=== PATIENT | male | born 1955 | race African-American/Black ===

== ENCOUNTER 2020-05-07 18:13 | Inpatient (IN) | payer BC, OTHER ==
[~2020-05-07] VITALS: Ht 182.9 cm; Wt 77.1 kg
[~2020-05-07 18:13] MED LIST: HYDR-1348 PO; SULF-165 PO
[2020-05-07] MEDS ORDERED: ALBUTEROL (0.083%) 2.5MG/3ML NEB HHN STA (18:54)
[2020-05-07] MEDS ORDERED: PREDNISONE 20MG TABLET PO STA (18:54)
[2020-05-07] MEDS ORDERED: IPRATROPIUM BROMIDE (0.02%) 0.5MG/2.5ML NEB HHN STA (18:54)
[2020-05-07] MEDS ORDERED: SODIUM CHLORIDE 0.9% 1,000 ML IV ONE (19:00)
[2020-05-07] MEDS ORDERED: CEFTRIAXONE 1 G PREMIX 50 ML IV ONE (19:00)
[2020-05-07] MEDS ORDERED: AZITHROMYCIN 500 MG in DEXT 5% WATER 250 ML IV SCH (19:00)
[2020-05-07 19:42] LABS: BASOPHILS % 0.3 % (0.0-2.0); CHLORIDE 99 mEq/L (98-107); HEMATOCRIT. 38.4 % (42.0-52.0); HEMOGLOBIN. 13.1 g/dL (14.0-18.0); LYMPHOCYTES % 12.1 % (20.0-50.0); MEAN CORPUSCULAR VOLUME 90.8 fL (80.0-94.0); MEAN PLATELET VOLUME 11.9 fl (7.4-10.4); MONOCYTES % 7.1 % (2.0-8.0); NEUTROPHILS % 80.5 % (40.0-76.0); PLATELET 107 x1000/uL (130-400); RED BLOOD CELL COUNT 4.23 mill/uL (4.7-6.1); RED CELL DISTRIBUTION WIDTH 13.9 % (11.6-14.6)
[2020-05-07 19:43] LABS: INR 1.1; PROTHROMBIN TIME 11.5 sec (9.6-11.0)
[2020-05-08] MEDS ORDERED: KCL 10MEQ/50ML PREMIX 50 ML IV ONE
[2020-05-08 01:05] VITALS: BP 127/80
[2020-05-08] MEDS ORDERED: AMLO5TAB88 PO (02:12)
[2020-05-08] MEDS ORDERED: ALLO100T PO (02:12)
[2020-05-08] MEDS ORDERED: FLUT1BLS9 INH (02:12)
[2020-05-08] MEDS ORDERED: LISI-604 PO (02:12)
[2020-05-08] MEDS ORDERED: ATOR40TA70 PO (02:12)
[2020-05-08] MEDS ORDERED: HYDROCODONE/ACETAMINOPHEN 5/325MG TABLET PO PRN (02:15)
[2020-05-08] MEDS ORDERED: ACETAMINOPHEN 325MG TABLET PO PRN (02:15)
[2020-05-08] MEDS ORDERED: ALBUTEROL 6.7GM HFA INHALER ORI PRN (03:00)
[2020-05-08 04:00] VITALS: BP 127/82
[2020-05-08] MEDS: DEXAMETHASONE 10 MG/ML VIAL IV SCH ×3 (05:23→17:29)
[2020-05-08 08:00] VITALS: BP 134/91
[2020-05-08] MEDS: PANTOPRAZOLE SODIUM 40 MG/VIAL IV SCH (08:38)
[2020-05-08 12:00] VITALS: BP 133/86
[2020-05-08 16:00] VITALS: BP 129/86
[2020-05-08] MEDS: AZITHROMYCIN 500 MG in DEXT 5% WATER 250 ML IV SCH (17:28)
[2020-05-08] MEDS: CEFTRIAXONE 1,000 MG in DEXTROSE 5% WATER 50 ML IV SCH (17:29)
[2020-05-08 20:00] VITALS: BP 131/83
[2020-05-09] VITALS: BP 125/82
[2020-05-09] MEDS: DEXAMETHASONE 10 MG/ML VIAL IV SCH ×3 (01:23→11:13)
[2020-05-09 04:00] VITALS: BP 127/82
[2020-05-09 08:00] VITALS: BP 123/89
[2020-05-09] MEDS: PANTOPRAZOLE SODIUM 40 MG/VIAL IV SCH (08:41)
[2020-05-09 12:00] VITALS: BP 121/73
[2020-05-09 15:10] LABS: BG CARBOXYHEMOGLOBIN 0.3 % (0.5-1.5); BG DEOXYHEMOGLOBIN 7.8 % (0.0-5.0); BG HCO3 ACT 21.3 mmol/L (22.0-26.0); BG METHEMOGLOBIN 0.2 % (0.0-1.5); BG OXYGEN SATURATION 92.2 % (92.0-98.5); BG OXYHEMOGLOBIN 91.7 % (94.0-97.0); BG PCO2 28.6 mmHg (35.0-45.0); BG PH 7.489 (7.350-7.450); BG PO2 63.7 mmHg (75.0-100.0); BG SAMPLE SITE RIGHT RADIAL; BG TOTAL HEMOGLOBIN 12.5 g/dL (12.0-18.0); BG VENT MODE ROOM AIR
[2020-05-09 16:00] VITALS: BP 113/77
[2020-05-09] MEDS: CEFTRIAXONE 1,000 MG in DEXTROSE 5% WATER 50 ML IV SCH (16:34)
[2020-05-09] MEDS ORDERED: ENOXAPARIN 30MG/0.3ML SYR SUBCUT SCH (17:00)
[2020-05-09] MEDS: AZITHROMYCIN 500 MG in DEXT 5% WATER 250 ML IV SCH (17:14)
[2020-05-09 20:00] VITALS: BP 118/81
[2020-05-10] VITALS: BP 120/82
[2020-05-10 04:00] VITALS: BP 122/73
[2020-05-10 08:00] VITALS: BP 128/78
[2020-05-10] MEDS: PANTOPRAZOLE SODIUM 40 MG/VIAL IV SCH (08:25)
[2020-05-10] MEDS ORDERED: DEXAMETHASONE 10 MG/ML VIAL IV SCH (09:00)
[2020-05-10 09:09] LABS: CHLORIDE 106 mEq/L (98-107)
[2020-05-10 09:18] LABS: BASOPHILS % 0.1 % (0.0-2.0); HEMATOCRIT. 32.1 % (42.0-52.0); HEMOGLOBIN. 10.8 g/dL (14.0-18.0); LYMPHOCYTES % 8.2 % (20.0-50.0); MEAN CORPUSCULAR HEMOGLOBIN 30.7 pg (28.0-32.0); MEAN CORPUSCULAR VOLUME 91.1 fL (80.0-94.0); MEAN PLATELET VOLUME 12.4 fl (7.4-10.4); MONOCYTES % 9.9 % (2.0-8.0); NEUTROPHILS % 81.8 % (40.0-76.0); PLATELET 170 x1000/uL (130-400); RED BLOOD CELL COUNT 3.52 mill/uL (4.7-6.1)
[2020-05-10 11:12] LABS: BG BASE EXCESS -0.7 mmol/L (-2.0-2.0); BG CARBOXYHEMOGLOBIN 0.3 % (0.5-1.5); BG DEOXYHEMOGLOBIN 5.8 % (0.0-5.0); BG FRACTION INSPIRED OXYGEN 21; BG HCO3 ACT 22.2 mmol/L (22.0-26.0); BG METHEMOGLOBIN 0.1 % (0.0-1.5); BG OXYGEN SATURATION 94.2 % (92.0-98.5); BG OXYHEMOGLOBIN 93.8 % (94.0-97.0); BG PCO2 31.4 mmHg (35.0-45.0); BG PH 7.468 (7.350-7.450); BG SAMPLE SITE RIGHT RADIAL; BG TOTAL HEMOGLOBIN 12.1 g/dL (12.0-18.0); BG VENT MODE ROOM AIR
[2020-05-10 12:00] VITALS: BP 114/73
[2020-05-10 12:11] LABS: T4 FREE 1.26 ng/dL (0.76-1.46)
[2020-05-10 13:58] LABS: CLARITY URINE CLEAR (CLEAR); COLOR URINE YELLOW (YELLOW); KETONES URINE NEGATIVE (NEGATIVE); LEUKOCYTE ESTERASE URINE NEGATIVE (NEGATIVE); NITRITE URINE NEGATIVE (NEGATIVE); OCCULT BLOOD URINE NEGATIVE (NEGATIVE); PROTEIN URINE TRACE (NEGATIVE); SPECIFIC GRAVITY URINE 1.015 (1.005-1.030); UROBILINOGEN URINE 0.2 E.U./dL (0.2-1.0)
[2020-05-10] MEDS ORDERED: DEXA4TAB MT (15:14)
[2020-05-10] MEDS ORDERED: ALBU90AE INH (15:14)
[2020-05-10] MEDS ORDERED: APIX5TAB MT (15:14)
[2020-05-10] MEDS ORDERED: FAMO-135 PO (15:14)
[2020-05-10] MEDS ORDERED: AZIT250T12 PO (15:14)
[2020-05-10 15:27] VITALS: BP 121/71
[2020-05-10 16:00] VITALS: BP 109/71
[2020-05-10] MEDS: CEFTRIAXONE 1,000 MG in DEXTROSE 5% WATER 50 ML IV SCH (17:00)
[2020-05-10] MEDS ORDERED: ENOXAPARIN 40MG/0.4ML SYR SUBCUT SCH (17:00)
[2020-05-11] MEDS ORDERED: FAMOTIDINE 20MG/2ML VIAL IV SCH (09:00)
== END 2020-05-10 17:40 | disposition home or self-care (01) | DRG 871 ==
LOC: ER 18:13 → CANRESERV 22:43 → ENRESERV 22:43 → 7EST 23:57 → EDBEDREQ 23:58 → EDBEDREQTM 23:58
PROVIDERS: ADMIT Internal Medicine; ATTEND Internal Medicine
DX: A41.89 Other specified sepsis (principal); U07.1 COVID-19; J96.90 Respiratory failure, unspecified, unspecified whether with hypoxia or hypercapnia; N17.0 Acute kidney failure with tubular necrosis; E87.1 Hypo-osmolality and hyponatremia; J45.901 Unspecified asthma with (acute) exacerbation; I10 Essential (primary) hypertension; E87.6 Hypokalemia; E78.5 Hyperlipidemia, unspecified; E78.00 Pure hypercholesterolemia, unspecified; D64.9 Anemia, unspecified; D72.810 Lymphocytopenia; Z79.01 Long term (current) use of anticoagulants; Z79.899 Other long term (current) drug therapy; Z79.2 Long term (current) use of antibiotics; R53.1 Weakness
CPT/HCPCS: 36415; 36600; 71045; 80048; 80053; 80061; 80076; 81003; 82375; 82805; 83036; 83605; 83880; 84439; 84443; 84484; 85025; 85379; 87426; 87635; 94640; 99285; C9113; J0456; J0696; J1100; J1650; J3480; J7030; J7040; J7060; J7512

== ENCOUNTER 2020-11-08 09:05 | Emergency (ER) | payer MEDICARE, BC, OTHER ==
[~2020-11-08] VITALS: Ht 182.9 cm; Wt 89.0 kg
[~2020-11-08 09:05] MED LIST changes: +ALBU90AE INH; +ALLO100T PO; +AMLO5TAB88 PO; +APIX5TAB MT; +ATOR40TA70 PO; +DEXA4TAB MT; +FAMO-135 PO; +FLUT1BLS9 INH; +LISI20TA31 PO; -SULF-165 PO
[2020-11-08] MEDS ORDERED: KETOROLAC 60MG/2ML VIAL IM ONE (09:45)
[2020-11-08] MEDS ORDERED: INDO-13 MT (10:57)
[2020-11-08] MEDS ORDERED: COLC0.6C3 MT (11:00)
[2020-11-08 11:12] VITALS: BP 125/89
== END 2020-11-08 11:19 | disposition home or self-care (01) ==
LOC: ER 09:05
DX: M10.09 Idiopathic gout, multiple sites (principal)
CPT/HCPCS: 96372; 99283; J1885

== ENCOUNTER 2022-01-31 09:43 | Emergency (ER) | payer OTHER ==
[~2022-01-31] VITALS: Ht 182.9 cm; Wt 88.0 kg
[~2022-01-31 09:43] MED LIST changes: +COLC0.6C3 MT; +INDO-13 MT
[2022-01-31 11:06] LABS: BASOPHILS % 0.4 % (0.0-2.0); EOSINOPHILS % 0.6 % (0.0-5.0); HEMATOCRIT. 31.2 % (42.0-52.0); HEMOGLOBIN. 10.6 g/dL (14.0-18.0); LYMPHOCYTES % 27.2 % (20.0-50.0); MEAN CORPUSCULAR HEMOGLOBIN 30.6 pg (28.0-32.0); MEAN CORPUSCULAR VOLUME 90.2 fL (80.0-94.0); MEAN PLATELET VOLUME 11.3 fl (7.4-10.4); MONOCYTES % 10.9 % (2.0-8.0); NEUTROPHILS % 60.9 % (40.0-76.0); PLATELET 117 x1000/uL (130-400); RED BLOOD CELL COUNT 3.46 mill/uL (4.7-6.1); RED CELL DISTRIBUTION WIDTH 13.7 % (11.6-14.6)
[2022-01-31 11:15] LABS: CHLORIDE 106 mEq/L (98-107)
[2022-01-31] MEDS ORDERED: MORPHINE SULFATE 2 MG/ML CPJ (NOT FOR IM USE) IV ONE (11:45)
[2022-01-31] MEDS ORDERED: HYDR-4001 MT (12:04)
[2022-01-31] MEDS ORDERED: IBUP-2029 MT (12:04)
[2022-01-31 14:15] VITALS: BP 147/88
== END 2022-01-31 14:20 | disposition home or self-care (01) ==
LOC: ER 10:03
DX: S22.31XA Fracture of one rib, right side, initial encounter for closed fracture (principal); F12.10 Cannabis abuse, uncomplicated; E78.00 Pure hypercholesterolemia, unspecified; I10 Essential (primary) hypertension; Z79.899 Other long term (current) drug therapy; Z98.890 Other specified postprocedural states; X58.XXXA Exposure to other specified factors, initial encounter; Y93.89 Activity, other specified; Y92.89 Other specified places as the place of occurrence of the external cause; Y99.8 Other external cause status
CPT/HCPCS: 36415; 71101; 80053; 84484; 85025; 93005; 96374; 99285; J2270

== ENCOUNTER 2022-03-27 16:27 | Inpatient (IN) | payer OTHER ==
[~2022-03-27] VITALS: Ht 182.9 cm; Wt 76.7 kg
[~2022-03-27 16:27] MED LIST changes: +HYDR-4001 MT; +IBUP-2029 MT
[2022-03-27] MEDS ORDERED: PIPERACILLIN/TAZ 3.375G PREMIX 50 ML IV ONE (17:30)
[2022-03-27] MEDS ORDERED: VANCOMYCIN 1G PREMIX 200 ML IV ONE (17:30)
[2022-03-27 18:45] LABS: BASOPHILS % 0.3 % (0.0-2.0); HEMATOCRIT. 30.7 % (42.0-52.0); HEMOGLOBIN. 10.5 g/dL (14.0-18.0); LYMPHOCYTES % 12.3 % (20.0-50.0); MEAN CORPUSCULAR VOLUME 90.9 fL (80.0-94.0); MEAN PLATELET VOLUME 11.5 fl (7.4-10.4); MONOCYTES % 10.4 % (2.0-8.0); PLATELET 104 x1000/uL (130-400); RED BLOOD CELL COUNT 3.38 mill/uL (4.7-6.1); RED CELL DISTRIBUTION WIDTH 13.5 % (11.6-14.6)
[2022-03-27 18:47] LABS: CHLORIDE 107 mEq/L (98-107)
[2022-03-27 18:57] LABS: INR 1.2; PROTHROMBIN TIME 12.9 sec (9.6-11.0)
[2022-03-27] MEDS ORDERED: MORPHINE SULFATE 4 MG/ML CPJ (NOT FOR IM USE) IV ONE (19:15)
[2022-03-28] MEDS ORDERED: POTASSIUM CHLORIDE 20MEQ TABLET SR PO NR (04:15)
[2022-03-28] MEDS ORDERED: CALCIUM GLUCONATE 1GM PREMIX 50 ML IV NR (04:30)
[2022-03-28] MEDS ORDERED: CLONIDINE 0.1MG TABLET PO PRN (05:30)
[2022-03-28] MEDS ORDERED: DOCUSATE SODIUM 100MG CAPSULE PO PRN (05:30)
[2022-03-28] MEDS ORDERED: GUAIFENESIN 200MG/10ML SUGAR FREE UDC PO PRN (05:30)
[2022-03-28] MEDS ORDERED: MAGNESIUM/ALUMINUM HYDROXIDE/SIMETHICONE 30ML UDC PO PRN (05:30)
[2022-03-28] MEDS ORDERED: ONDANSETRON HCL 4MG/2ML INJ IV PRN (05:30)
[2022-03-28] MEDS ORDERED: ACETAMINOPHEN 325MG TABLET PO PRN ×2 (05:30)
[2022-03-28] MEDS ORDERED: IPRATROPIUM/ALBUTEROL 0.5-3(2.5)MG/3ML NEB HHN PRN (05:30)
[2022-03-28] MEDS ORDERED: [UNRECOGNIZED DRUG - CODE] IV (06:02)
[2022-03-28] MEDS ORDERED: AMLO5TAB88 PO (06:02)
[2022-03-28] MEDS ORDERED: LISI-186 PO (06:02)
[2022-03-28] MEDS ORDERED: HYDR-4001 MT (06:02)
[2022-03-28] MEDS ORDERED: OMEP20TA23 PO (06:02)
[2022-03-28 06:42] VITALS: BP 148/82
[2022-03-28 08:00] VITALS: BP 151/90
[2022-03-28] MEDS ORDERED: *PATIENT'S OWN MEDICATION STORAGE XX SCH (08:45)
[2022-03-28] MEDS ORDERED: PREDNISONE 20MG TABLET PO SCH (09:00)
[2022-03-28] MEDS: HYDROCODONE/ACETAMINOPHEN 5/325MG TABLET PO PRN ×2 (10:53→21:41)
[2022-03-28] MEDS: LISINOPRIL 20MG TABLET PO SCH (10:53)
[2022-03-28] MEDS: AMLODIPINE 5MG TABLET PO SCH (10:53)
[2022-03-28] MEDS: FAMOTIDINE 20MG TABLET PO SCH (10:53)
[2022-03-28] MEDS: ENOXAPARIN 40MG/0.4ML SYR SUBCUT SCH (10:55)
[2022-03-28] MEDS ORDERED: METHYLPREDNISOLONE SOD SUCC 125 MG/2 ML VIAL IV NR (11:00)
[2022-03-28] MEDS ORDERED: COLCHICINE 0.6MG TABLET PO NR (11:00)
[2022-03-28 12:00] VITALS: BP 133/79
[2022-03-28] MEDS: INDOMETHACIN 25MG CAPSULE PO SCH ×2 (12:51→21:42)
[2022-03-28] MEDS ORDERED: COLCHICINE 0.6MG TABLET PO SCH (13:00)
[2022-03-28 16:00] VITALS: BP 133/81
[2022-03-28] MEDS: COLCHICINE 0.6MG TABLET PO SCH ×8 (16:17→23:00)
[2022-03-28 19:32] LABS: PHOSPHORUS 2.5 mg/dL (2.5-4.9)
[2022-03-28 19:56] LABS: FOLIC ACID (FOLATE) SERUM 19.8 ng/mL (>5.38)
[2022-03-28 20:00] VITALS: BP 127/78
[2022-03-28] MEDS ORDERED: MAGNESIUM 2 G PREMIX 50 ML IV NR (21:00)
[2022-03-28] MEDS: ATORVASTATIN CALCIUM 40MG TABLET PO SCH (21:41)
[2022-03-28] MEDS ORDERED: MAGNESIUM 4 G PREMIX 100 ML IV ONE (23:00)
[2022-03-29] VITALS: BP 124/72
[2022-03-29 04:00] VITALS: BP 132/74
[2022-03-29 07:08] LABS: HEMATOCRIT. 31.4 % (42.0-52.0); HEMOGLOBIN. 10.4 g/dL (14.0-18.0); MEAN CORPUSCULAR HEMOGLOBIN 30.2 pg (28.0-32.0); MEAN CORPUSCULAR VOLUME 91.2 fL (80.0-94.0); MEAN PLATELET VOLUME 11.9 fl (7.4-10.4); PLATELET 107 x1000/uL (130-400); RED BLOOD CELL COUNT 3.45 mill/uL (4.7-6.1); RED CELL DISTRIBUTION WIDTH 13.8 % (11.6-14.6)
[2022-03-29 07:15] LABS: CHLORIDE 100 mEq/L (98-107)
[2022-03-29 08:00] VITALS: BP 129/72
[2022-03-29] MEDS ORDERED: POTASSIUM CHLORIDE 20MEQ TABLET SR PO NR (08:00)
[2022-03-29] MEDS ORDERED: NALOXONE HCL 0.4MG/ML VIAL IV PRN (10:00)
[2022-03-29] MEDS ORDERED: KCL 20MEQ/100ML PREMIX 100 ML IV NR (11:00)
[2022-03-29] MEDS ORDERED: SODIUM CHLORIDE 0.9% 750 ML IV ONE (11:15)
[2022-03-29] MEDS: INDOMETHACIN 25MG CAPSULE PO SCH ×2 (11:16→20:21)
[2022-03-29] MEDS: FLUTICASONE PROPIONATE 50MCG/SPRAY BOTTLE BOTHNSTRLS SCH ×2 (11:16→20:21)
[2022-03-29] MEDS: LISINOPRIL 20MG TABLET PO SCH (11:17)
[2022-03-29] MEDS: FAMOTIDINE 20MG TABLET PO SCH (11:17)
[2022-03-29] MEDS: AMLODIPINE 5MG TABLET PO SCH (11:17)
[2022-03-29] MEDS: ENOXAPARIN 40MG/0.4ML SYR SUBCUT SCH (11:17)
[2022-03-29] MEDS: COLCHICINE 0.6MG TABLET PO SCH (11:25)
[2022-03-29 12:00] VITALS: BP 119/73
[2022-03-29 16:00] VITALS: BP 141/69
[2022-03-29 17:32] LABS: PLATELET ESTIMATE DECREASED
[2022-03-29 20:00] VITALS: BP 125/73
[2022-03-29] MEDS: ATORVASTATIN CALCIUM 40MG TABLET PO SCH (20:20)
[2022-03-29] MEDS: HYDROCODONE/ACETAMINOPHEN 5/325MG TABLET PO PRN (20:20)
[2022-03-30] VITALS: BP 121/71
[2022-03-30 04:00] VITALS: BP 127/80
[2022-03-30 07:55] LABS: HEMATOCRIT. 30.7 % (42.0-52.0); HEMOGLOBIN. 10.3 g/dL (14.0-18.0); MEAN CORPUSCULAR HEMOGLOBIN 30.5 pg (28.0-32.0); MEAN CORPUSCULAR VOLUME 90.8 fL (80.0-94.0); MEAN PLATELET VOLUME 11.7 fl (7.4-10.4); PLATELET 125 x1000/uL (130-400); RED BLOOD CELL COUNT 3.38 mill/uL (4.7-6.1); RED CELL DISTRIBUTION WIDTH 13.8 % (11.6-14.6)
[2022-03-30 08:00] VITALS: BP 129/80
[2022-03-30 08:07] LABS: CHLORIDE 105 mEq/L (98-107)
[2022-03-30 08:15] LABS: PHOSPHORUS 2.8 mg/dL (2.5-4.9)
[2022-03-30] MEDS: FLUTICASONE PROPIONATE 50MCG/SPRAY BOTTLE BOTHNSTRLS SCH (09:00)
[2022-03-30] MEDS: INDOMETHACIN 25MG CAPSULE PO SCH (10:29)
[2022-03-30] MEDS: ENOXAPARIN 40MG/0.4ML SYR SUBCUT SCH (10:29)
[2022-03-30] MEDS: FAMOTIDINE 20MG TABLET PO SCH (10:29)
[2022-03-30] MEDS: AMLODIPINE 5MG TABLET PO SCH (10:30)
[2022-03-30] MEDS: COLCHICINE 0.6MG TABLET PO SCH (10:30)
[2022-03-30] MEDS: LISINOPRIL 20MG TABLET PO SCH (10:30)
[2022-03-30 12:00] VITALS: BP 124/73
[2022-03-30] MEDS ORDERED: IBUP-2029 MT (14:25)
[2022-03-30] MEDS ORDERED: COLC0.6C3 MT (14:25)
[2022-03-30] MEDS ORDERED: FAMO-135 PO (14:25)
[2022-03-30 19:39] LABS: PLATELET ESTIMATE DECREASED
[2022-03-30] MEDS ORDERED: FAMOTIDINE 20MG TABLET PO SCH (21:00)
== END 2022-03-30 14:00 | disposition home or self-care (01) | DRG 872 ==
LOC: ER 16:27 → EDBEDREQTM 17:57 → EDBEDREQ 17:57 → EDBEDREQSVC 17:57 → MICUSO 22:12 → EDBEDREQ 22:16 → EDBEDREQTM 22:16 → 6EST 03-28 04:34
PROVIDERS: ADMIT Internal Medicine; ATTEND Internal Medicine
DX: A41.9 Sepsis, unspecified organism (principal); M10.9 Gout, unspecified; D69.6 Thrombocytopenia, unspecified; E83.51 Hypocalcemia; E87.6 Hypokalemia; E78.00 Pure hypercholesterolemia, unspecified; D64.9 Anemia, unspecified; J45.909 Unspecified asthma, uncomplicated; I10 Essential (primary) hypertension; M19.90 Unspecified osteoarthritis, unspecified site; E83.42 Hypomagnesemia; Z79.899 Other long term (current) drug therapy
CPT/HCPCS: 36415; 73070; 73110; 73562; 73610; 80053; 80061; 82330; 82607; 82728; 82746; 83540; 83550; 83605; 83735; 84100; 84145; 84550; 85025; 85379; 85651; 93005; 93970; 99285; J0610; J1650; J2270; J2543; J2930; J3370; J3475; J3480

== ENCOUNTER 2022-05-08 11:18 | Emergency (ER) | payer OTHER ==
[~2022-05-08] VITALS: Ht 182.9 cm; Wt 90.0 kg
[~2022-05-08 11:18] MED LIST changes: -APIX5TAB MT; -ATOR40TA70 PO; -DEXA4TAB MT; -HYDR-1348 PO; -HYDR-4001 MT; -INDO-13 MT
[2022-05-08 11:22] VITALS: BP 113/91
[2022-05-08] MEDS ORDERED: INDOMETHACIN 25MG CAPSULE PO ONE (12:00)
[2022-05-08] MEDS ORDERED: DEXAMETHASONE 10 MG/ML VIAL IM ONE (12:00)
[2022-05-08] MEDS ORDERED: HYDR-4001 MT (13:55)
[2022-05-08] MEDS ORDERED: COLC0.6C3 MT (13:55)
== END 2022-05-08 15:39 | disposition home or self-care (01) ==
LOC: ER 11:18
DX: M1A.0610 Idiopathic chronic gout, right knee, without tophus (tophi) (principal); M1A.421 Other secondary chronic gout, right elbow; M1A.4 Other secondary chronic gout; I10 Essential (primary) hypertension
CPT/HCPCS: 96372; 99283; J1100

== ENCOUNTER 2022-06-12 11:55 | Emergency (ER) | payer OTHER ==
[~2022-06-12] VITALS: Ht 182.9 cm; Wt 92.0 kg
[~2022-06-12 11:55] MED LIST changes: +HYDR-4001 MT
[2022-06-12] MEDS ORDERED: KETOROLAC 30MG/ML VIAL IV STA (12:29)
[2022-06-12] MEDS ORDERED: COLCHICINE 0.6MG TABLET PO ONE (12:30)
[2022-06-12] MEDS ORDERED: HYDROCODONE/ACETAMINOPHEN 5/325MG TABLET PO ONE (12:30)
[2022-06-12] MEDS ORDERED: METHYLPREDNISOLONE SOD SUCC 125 MG/2 ML VIAL IV ONE (12:30)
[2022-06-12] MEDS ORDERED: CLONIDINE 0.2MG TABLET PO ONE (12:45)
[2022-06-12 13:08] LABS: CHLORIDE 106 mEq/L (98-107)
[2022-06-12 13:16] LABS: BASOPHILS % 0.3 % (0.0-2.0); EOSINOPHILS % 0.1 % (0.0-5.0); HEMATOCRIT. 31.9 % (42.0-52.0); HEMOGLOBIN. 10.7 g/dL (14.0-18.0); LYMPHOCYTES % 12.4 % (20.0-50.0); MEAN CORPUSCULAR HEMOGLOBIN 30.5 pg (28.0-32.0); MEAN CORPUSCULAR VOLUME 90.9 fL (80.0-94.0); MEAN PLATELET VOLUME 10.8 fl (7.4-10.4); MONOCYTES % 9.3 % (2.0-8.0); NEUTROPHILS % 77.9 % (40.0-76.0); PLATELET 149 x1000/uL (130-400); RED BLOOD CELL COUNT 3.51 mill/uL (4.7-6.1); RED CELL DISTRIBUTION WIDTH 15.4 % (11.6-14.6)
[2022-06-12] MEDS ORDERED: P20 MT (14:48)
[2022-06-12] MEDS ORDERED: IBUP-2028 MT (14:48)
[2022-06-12] MEDS ORDERED: POTASSIUM CHLORIDE 20MEQ TABLET SR PO ONE (15:00)
[2022-06-12] MEDS: SODIUM CHLORIDE 0.9% 1,000 ML IV ONE ×2 (15:17→16:12)
[2022-06-12] MEDS ORDERED: METHYLPREDNISOLONE SOD SUCC 125 MG/2 ML VIAL IV SCH (15:30)
[2022-06-12] MEDS ORDERED: CLONIDINE 0.2MG TABLET PO SCH (15:30)
[2022-06-12] MEDS ORDERED: COLCHICINE 0.6MG TABLET PO SCH (15:30)
[2022-06-12] MEDS ORDERED: KETOROLAC 30MG/ML VIAL IV SCH (15:30)
[2022-06-12] MEDS ORDERED: HYDROCODONE/ACETAMINOPHEN 5/325MG TABLET PO SCH (15:30)
[2022-06-12] MEDS ORDERED: KETOROLAC 60MG/2ML VIAL IM ONE (16:00)
[2022-06-12] MEDS ORDERED: METHYLPREDNISOLONE SOD SUCC 125 MG/2 ML VIAL IM ONE (16:00)
[2022-06-12 16:15] VITALS: BP 134/78
== END 2022-06-12 16:45 | disposition home or self-care (01) ==
LOC: ER 11:55
DX: M25.531 Pain in right wrist (principal); M25.571 Pain in right ankle and joints of right foot; M25.521 Pain in right elbow; M79.89 Other specified soft tissue disorders; E87.6 Hypokalemia; I10 Essential (primary) hypertension; E78.00 Pure hypercholesterolemia, unspecified; M10.9 Gout, unspecified; J45.909 Unspecified asthma, uncomplicated
CPT/HCPCS: 36415; 80053; 84550; 85025; 93005; 96374; 99284; J1885; J7030

== ENCOUNTER 2023-07-02 07:10 | Emergency (ER) | payer OTHER ==
[~2023-07-02] VITALS: Ht 182.9 cm; Wt 84.0 kg
[~2023-07-02 07:10] MED LIST changes: +IBUP-2028 MT; +P20 MT
[2023-07-02 07:28] VITALS: RESP 16; TEMP 98.3; O2SAT 98
[2023-07-02] MEDS ORDERED: METOCLOPRAMIDE HCL 10MG/2ML VIAL IV STA (08:08)
[2023-07-02] MEDS ORDERED: PANTOPRAZOLE SODIUM 40 MG/VIAL IV STA (08:08)
[2023-07-02] MEDS ORDERED: MAGNESIUM/ALUMINUM HYDROXIDE/SIMETHICONE 30ML UDC PO STA (08:08)
[2023-07-02] MEDS ORDERED: SODIUM CHLORIDE 0.9% 1,000 ML IV ONE (08:15)
[2023-07-02 08:44] LABS: BASOPHILS % 0.3 % (0.0-2.0); DIFFERENTIAL COMMENT 0; HEMATOCRIT. 33.1 % (42.0-52.0); HEMOGLOBIN. 11.1 g/dL (14.0-18.0); LYMPHOCYTES % 11.8 % (20.0-50.0); MEAN CORPUSCULAR HEMOGLOBIN 30.7 pg (28.0-32.0); MEAN CORPUSCULAR HGB CONC 33.6 g/dL (31.0-37.0); MEAN CORPUSCULAR VOLUME 91.3 fL (80.0-94.0); MEAN PLATELET VOLUME 11.4 fl (7.4-10.4); MONOCYTES % 13.7 % (2.0-8.0); NEUTROPHILS % 74.2 % (40.0-76.0); PLATELET 133 x1000/uL (130-400); RED BLOOD CELL COUNT 3.63 mill/uL (4.7-6.1); RED CELL DISTRIBUTION WIDTH 13.8 % (11.6-14.6); WHITE BLOOD COUNT 8.2 x1000/uL (4.5-11.0)
[2023-07-02 08:55] LABS: INR 1.3; PROTHROMBIN TIME 13.3 sec (9.6-11.0)
[2023-07-02 09:14] LABS: ALANINE AMINOTRANSFERASE 18 IU/L (10-49); ASPARTATE AMINOTRANSFERASE 88 IU/L (<34); BILIRUBIN TOTAL 0.5 mg/dL (0.1-1.0); CALCIUM 7.2 mg/dL (8.7-10.4); CARBON DIOXIDE 28 mEq/L (21-32); CHLORIDE 99 mEq/L (98-107); CREATININE 1.3 mg/dL (0.6-1.3); GLUCOSE 132 mg/dL (70-105); PROTEIN TOTAL 8.5 g/dL (6.0-8.3); SODIUM 141 mEq/L (136-145); UREA NITROGEN BLOOD 18 mg/dL (9-23)
[2023-07-02 09:27] LABS: POTASSIUM 2.6 mEq/L (3.5-5.1)
[2023-07-02] MEDS ORDERED: POTASSIUM CHLORIDE 20MEQ/PACKET PO ONE (10:15)
[2023-07-02 10:34] LABS: CLARITY URINE CLEAR (CLEAR); COLOR URINE YELLOW (YELLOW); GLUCOSE URINE NEGATIVE (NEGATIVE); KETONES URINE 1+ (NEGATIVE); LEUKOCYTE ESTERASE URINE NEGATIVE (NEGATIVE); NITRITE URINE NEGATIVE (NEGATIVE); OCCULT BLOOD URINE 3+ (NEGATIVE); PROTEIN URINE 3+ (NEGATIVE); SPECIFIC GRAVITY URINE 1.018 (1.005-1.030); UROBILINOGEN URINE 0.2 E.U./dL (0.2-1.0)
[2023-07-02 10:45] LABS: BACTERIA URINE FEW; RBC URINE 0-2 /hpf (0-2); SQUAMOUS EPITHELIAL CELL URINE NONE SEEN /lpf (RARE/1+); WBC URINE 0-2 /hpf (0-2); YEAST URINE NONE SEEN
[2023-07-02 12:50] VITALS: BP 130/84; PULSE 81
[2023-07-02] MEDS ORDERED: TOPUD MT (13:10)
[2023-07-02] MEDS ORDERED: PROT40 MT (13:10)
[2023-07-02] MEDS ORDERED: MAG355OR21 MT (13:10)
[2023-07-02] MEDS ORDERED: ONDA4TAB50 MT (13:10)
== END 2023-07-02 14:20 | disposition home or self-care (01) ==
LOC: ER 07:38
DX: K29.70 Gastritis, unspecified, without bleeding (principal); F10.10 Alcohol abuse, uncomplicated; E87.6 Hypokalemia; M19.90 Unspecified osteoarthritis, unspecified site; R51.9 Headache, unspecified; J45.909 Unspecified asthma, uncomplicated; E78.00 Pure hypercholesterolemia, unspecified; I10 Essential (primary) hypertension; Y90.9 Presence of alcohol in blood, level not specified
CPT/HCPCS: 99284; 96374; 70450; 96375; 80053; 81003; 83690; 85025; 85610; 36415; J2765; C9113; J7030